=== PATIENT | female | born 1985 | race Caucasian/White ===

== ENCOUNTER → 2018-09-16 10:38 | Outpatient (CLI) | payer OTHER, SELFPAY ==
[2018-09-16 11:10] LABS: Add Manual Diff / Slide Review NO; Basophils Absolute Auto 100 /uL (0-100); Eosinophils Absolute Auto 100 /uL (0-450); Eosinophils Percent Auto 1.3 % (2-4); Hematocrit 37.1 % (36-46); Hemoglobin 11.9 g/dL (12.0-16.0); Lymphocytes Absolute Auto 1400 /uL (1100-4500); Lymphocytes Percent Auto 25.8 % (25-40); Mean Corpuscular HGB Conc 32.1 % (30-36); Mean Corpuscular Hemoglobin 22.5 PG (26-34); Monocytes Absolute Auto 400 /uL (0-900); Monocytes Percent Auto 8.4 % (3-14); Neutrophils Absolute Auto 3400 /uL (1500-7000); Neutrophils Percent Auto 63.5 % (50-75); Platelet Count 176 X10^3/uL (150-400); Red Cell Distribution Width 17.3 % (11.6-14.8); White Blood Cell Count 5.3 X10^3/uL (4.5-11.0)
[2018-09-16 11:54] LABS: Alanine Aminotransferase 21 IU/L (9-52); Albumin Globulin Ratio 1.5 (1.0-2.8); Alkaline Phosphatase 25 U/L (38-126); Aspartate Aminotransferase 10 IU/L (14-36); BUN Creatinine Ratio 24.3 (6-22); Bilirubin Total 0.9 mg/dL (0.2-1.3); Blood Urea Nitrogen 17 mg/dL (7-17); Carbon Dioxide 25 mmol/L (22-32); Chloride 105 mmol/L (98-107); Cholesterol 158 mg/dL (140-199); Estimated Glomerular Filt Rate > 60.0 mL/min (>60); Globulin 2.6 g/dL (1.7-4.1); Glucose 92 mg/dL (70-100); HDL Cholesterol 68 mg/dL (40-60); HEMOLYSIS < 15 (0-50); LDL Cholesterol Calculated 83 mg/dL (<100); Sodium 137 mmol/L (137-145); Total Protein 6.6 g/dL (6.3-8.2); Triglycerides 36 mg/dL (35-150)
[2018-09-16 12:23] LABS: Thyroid Stimulating Hormone 2.19 uIU/mL (0.47-4.68)
== END ==
DX: Z13.228 Encounter for screening for other metabolic disorders (principal); Z13.220 Encounter for screening for lipoid disorders; Z13.0 Encounter for screening for diseases of the blood and blood-forming organs and certain disorders involving the immune mechanism; Z13.29 Encounter for screening for other suspected endocrine disorder
CPT/HCPCS: 36415; 80053; 80061; 84443; 85025

== ENCOUNTER → 2018-09-29 15:01 | Outpatient (CLI) | payer OTHER, SELFPAY ==
[2018-09-29 15:17] LABS: Add Manual Diff / Slide Review NO; Basophils Absolute Auto 100 /uL (0-100); Basophils Percent Auto 1.3 % (0-2); Eosinophils Absolute Auto 0 /uL (0-450); Eosinophils Percent Auto 0.7 % (2-4); Hematocrit 36.4 % (36-46); Hemoglobin 11.8 g/dL (12.0-16.0); Lymphocytes Absolute Auto 1600 /uL (1100-4500); Lymphocytes Percent Auto 23.5 % (25-40); Mean Corpuscular HGB Conc 32.5 % (30-36); Mean Corpuscular Hemoglobin 22.4 PG (26-34); Mean Corpuscular Volume 69.1 fL (80-100); Monocytes Absolute Auto 300 /uL (0-900); Monocytes Percent Auto 4.8 % (3-14); Neutrophils Absolute Auto 4600 /uL (1500-7000); Neutrophils Percent Auto 69.7 % (50-75); Platelet Count 200 X10^3/uL (150-400); Red Blood Cell Count 5.28 X10^6/uL (4.0-5.2); Red Cell Distribution Width 17.4 % (11.6-14.8); White Blood Cell Count 6.6 X10^3/uL (4.5-11.0)
[2018-09-29 15:54] LABS: Anisocytosis 1+; Microcytosis 1+
[2018-09-29 16:32] LABS: Alanine Aminotransferase 33 IU/L (9-52); Albumin 4.3 g/dL (3.5-5.0); Albumin Globulin Ratio 1.6 (1.0-2.8); Alkaline Phosphatase 28 U/L (38-126); Aspartate Aminotransferase 14 IU/L (14-36); BUN Creatinine Ratio 17.8 (6-22); Bilirubin Total 0.5 mg/dL (0.2-1.3); Bilirubin Unconjugated 0.5 mg/dL (0.0-1.1); Blood Urea Nitrogen 16 mg/dL (7-17); Calcium 9.1 mg/dL (8.4-10.2); Carbon Dioxide 26 mmol/L (22-32); Chloride 103 mmol/L (98-107); Estimated Glomerular Filt Rate > 60.0 mL/min (>60); Globulin 2.7 g/dL (1.7-4.1); Glucose 102 mg/dL (70-100); HEMOLYSIS < 15 (0-50); Sodium 137 mmol/L (137-145)
== END ==
DX: D64.9 Anemia, unspecified (principal); R94.4 Abnormal results of kidney function studies; R94.5 Abnormal results of liver function studies
CPT/HCPCS: 36415; 80053; 80076; 85025

== ENCOUNTER → 2019-10-10 12:09 | Outpatient (CLI) | payer OTHER, SELFPAY ==
--- NOTE | 2019-10-10 | DI.US.S_ITS ---
PROCEDURE: US OB >= 14 WEEKS FETUS INDICATIONS: 20 WEEK ANATOMY SCAN OUTSIDE/PRIOR DATING DATA: First dating scan (date and location): Unknown Estimated date of delivery (ANNETTE) from first dating scan: 03/03/20 outside ultrasound. TECHNIQUE: Real-time scanning was performed of the fetus, with image documentation and biometric measurements. COMPARISON: None. FINDINGS: General: A single living intrauterine gestation is present. Presentation: Breech. Placenta: Placental position is posterior, without previa. Amniotic fluid index: 10.1 cm, normal range is 5-24 cm. heart rate: 147 beats per minute. Maternal cervical canal: 4.5 cm long. Normal lower limit is 2.5 cm. biometrics: Biparietal diameter: 19 weeks 2 days Head circumference: 19 weeks Abdominal circumference: 19 weeks 4 days Femur length: 19 weeks 6 days Estimated gestational age from initial scan: not applicable. Composite gestational age from present scan: 19 weeks 2 days Estimated weight and percentile: 19 weeks 3 days Measurement variability for biometric dating: +/- 7 days from 14 weeks to 15 weeks 6 days gestation, +/- 10 days from 16 weeks to 21 weeks 6 days gestation, +/- 2 weeks from 22 weeks to 27 weeks 6 days gestation, +/- 3 weeks for 28 weeks gestation or later. weight reference: 4500 g or EFW >90/95% is considered macrosomia or large for gestational age. EFW <10% is small for gestational age. EFW 5% or less is considered intra-uterine growth restriction. Anatomic survey: Neuro: Ventricles are non-dilated at less than 10 mm. Cisterna magna is normal at 3-11 mm. Cerebellum is normal in size and morphology. Nuchal skin fold: Normal at less than 6 mm between 14-21 weeks gestational age. Face: Nose and lips, facial profile are normal. Spine: No evidence for spina bifida. Heart: 4-chambered heart is present, with normal ventricular outflow tracts. Diaphragm: Diaphragm is intact. Stomach: Left-sided stomach is present. Kidneys: No hydronephrosis. Normal is less than 5 mm in 2nd trimester, less than 7 mm in 3rd trimester. Cord: 3-vessel cord has orthotopic insertion. Bladder: Normal in size. Extremities: All 4 extremities identified. IMPRESSION: 1. Single living IUP with mean composite gestational age of 19 weeks 3 days corresponding to normal interval growth with estimated weight 65th percentile. 2. Normal anatomic survey. Dictated by: Luan Rodriguez RR Interpreted: Yariel Hawkins MD on 10/11/2019 at 16:59 Approved by: Yariel Hawkins M.D. on 10/11/2019 at 17:32
== END ==
PROVIDERS: Referring Provider Nurse Practitioner Obstetrics & Gynecology; Visit Provider Nurse Practitioner Obstetrics & Gynecology
DX: Z36.89 Encounter for other specified antenatal screening (principal); Z3A.19 19 weeks gestation of pregnancy
CPT/HCPCS: 76801; 76811

== ENCOUNTER → 2019-11-17 08:27 | Outpatient (CLI) | payer OTHER, SELFPAY ==
[2019-11-17 09:55] LABS: Hematocrit 32.7 % (36-46); Hemoglobin 10.6 g/dL (12.0-16.0); Mean Corpuscular HGB Conc 32.4 % (30-36); Mean Corpuscular Hemoglobin 23.1 PG (26-34); Mean Corpuscular Volume 71.4 fL (80-100); Platelet Count 162 X10^3/uL (150-400); Red Blood Cell Count 4.57 X10^6/uL (4.0-5.2); White Blood Cell Count 8.6 X10^3/uL (4.5-11.0)
[2019-11-17 10:15] LABS: Glucose Fasting 91 mg/dL (70-100)
[2019-11-17 10:51] LABS: Glucose Tol Interpretation INTERPRETATION
[2019-11-17 11:50] LABS: Glucose 1 Hour 134 mg/dL (70-170)
[2019-11-17 13:08] LABS: Glucose 2 Hour 69 mg/dL (70-140)
== END ==
PROVIDERS: PCP Nurse Practitioner Obstetrics & Gynecology; Referring Provider Nurse Practitioner Obstetrics & Gynecology; Visit Provider Nurse Practitioner Obstetrics & Gynecology
DX: Z34.02 Encounter for supervision of normal first pregnancy, second trimester (principal); Z13.1 Encounter for screening for diabetes mellitus; Z67.91 Unspecified blood type, Rh negative
CPT/HCPCS: 36415; 82951; 82952; 85027; 86850

== ENCOUNTER → 2020-02-06 15:18 | Outpatient (ROUT) | payer OTHER, SELFPAY | PROVIDERS: PCP Nurse Practitioner Obstetrics & Gynecology; Visit Provider Nurse Practitioner Obstetrics & Gynecology | DX: Z34.90 Encounter for supervision of normal pregnancy, unspecified, unspecified trimester (principal); Z36.85 Encounter for antenatal screening for Streptococcus B; Z3A.36 36 weeks gestation of pregnancy | CPT/HCPCS: 87070; 87205 ==

== ENCOUNTER 2020-03-06 06:43 | Outpatient (CLI) | payer OTHER, SELFPAY ==
--- NOTE | 2020-03-06 06:56 | PM.OBTRLD ---
Visit Information Visit Information Date of evaluation: 03/06/20 Primary OB Provider: Morena Valentine On-call OB Provider: Jo Casarez Reason for Evaluation: Yes rupture of membranes Comments/Additional reasons for admission: 34YO @40wks3 days by sure LMP and 8wk US presents for evaluation of PROM which occurred last night, 03/05/20, at 1845. Declined to come in at that time. Had mild contractions overnight w/ good FM and continued to leak small amounts of clear fluid. Strongly desires low intervention and does not want to stay to be admitted this morning. Routine PN care w/ CNM complicated only by age and beta thalassemia minor. is present and supportive. Vital Signs Vital Signs: BP 127/73, HR-79bpm, T36.7C Temporal PFSH Medical History (Updated 03/06/20 @ 07:22 by Morena Valentine CNM) Chicken pox (Resolved) Surgical History Anesthesia (Resolved) History of lateral meniscus repair of left knee (Resolved) History of repair of ACL (Resolved ~2002) Family History Mother Breast cancer Grandmother Breast cancer Social History marital status: number of children: 0 household members: spouse lives independently: Yes occupational status: employed (Massage therapist) Smoking Status: Never smoker alcohol intake: current (rare) substance use type: does not use Review of Systems Review of Systems ROS: Yes All systems reviewed with the patient and are negative except as otherwise documented Exam Vital Signs (past 8 hours): see above Uterus Location (Fundal Height): 39 Presentation: vertex Amniotic Fluid: clear and other Other: CE deferred as patient does not appear to be uncomfortable and membranes are rupture x 12 hours. Evaluation Evaluation Baseline heart rate: 130 Variability: Moderate (11-25) monitor accelerations: Present monitor decelerations: Absent Contraction Frequency (minutes): 5 Uterine Contraction Intensity: Mild Category of Tracing: I Non-invasive Membranes Rupture Test: negative Diagnosis, Plan/Disposition Final Diagnosis (1) 40 weeks gestation of : Status: Acute (2) PROM (premature rupture of membranes): Status: Acute Problem details: Counseled on recommendation for admission and labor augmentation at this time. Patient declines, but agrees to this no later than 24 hours from ROM. Counseled on risk of infection w/ no CE performed to reduce risk. Encouraged her to come back [facility] if concern for decreased FM, change in color of leaking fluid or stronger contractions. Reviewed warning sx. Return no later than 5 this evening. (3) Beta thalassemia minor: Status: Acute (4) Advanced maternal age in in third trimester: Status: Acute
== END 2020-03-06 07:12 | disposition home or self-care (01) ==
LOC: LABOR 07:07 → OB 14:02
PROVIDERS: PCP Nurse Practitioner Obstetrics & Gynecology; Referring Provider Nurse Practitioner Obstetrics & Gynecology; Visit Provider Nurse Practitioner Obstetrics & Gynecology
DX: O42.92 Full-term premature rupture of membranes, unspecified as to length of time between rupture and onset of labor (principal); O09.523 Supervision of elderly multigravida, third trimester; O48.0 Post-term pregnancy; D56.3 Thalassemia minor; Z3A.40 40 weeks gestation of pregnancy
CPT/HCPCS: 59025; 84112; G0378; G0379

== ENCOUNTER 2020-03-06 14:47 | Inpatient (IN) | payer OTHER, SELFPAY ==
--- NOTE | 2020-03-06 14:51 | PM.OBHP.1 ---
OB HPI Date/Time Date of admission: 03/06/20 Date Patient Seen: 03/06/20 Time Patient Seen: 14:55 History of Present Condition Chief complaint: Obs : 2 Para: 0 Estimated Date of Delivery: 03/03/20 Estimated Gestational Age (weeks): 40.3 Narrative: Jania Palomo is a 34 year old female @ 40wks3 days by LMP and early US presents for augmentation of PROM. PROM occurred 03/05/20 @ 1845 and patient declined admission until now. ROM was confirmed this morning at 0645, clear fluid and RNST at that time w/ mild ctx Q5 minutes. No change in contractions since. Patient would like to try breast pumping for nipple stimulation until 24 hours of ROM at which time, she will agree to pitocin augment. Routine PN care w/ CNM w/ risk factors of AMA and beta thalassemia minor. Patient strongly desires low intervention and declines IV. present and supportive. History of Present care: good care Dating criteria: LMP confirmed by 1st trimester US Ultrasounds: normal mid trimester US Obstetrical complications: none Medical complications: none Preadmission Labs Blood type: A (-) negative -: Antibody screen: negative, GBS status: negative, HBsAG: negative, HIV: negative and RPR/VDLR: negative -: Chlamydia screen: not detected and Gonorrhea screen: not detected -: Rubella: immune HCT: 33.7 HCAB: reactive Cell-free DNA: Negative, female 3 hr GTT: 2 hr (91/134/69) Prior (ies) History: 04/24/08- TAB @ 5wks Evaluation Evaluation Baseline heart rate: 130 Variability: Moderate (11-25) monitor accelerations: Present monitor decelerations: Absent Contraction Frequency (minutes): 8 Uterine Contraction Intensity: Mild Category of Tracing: I Comments: CE deferred as PROM has been confirmed and patient is not feeling regular contractions/not in labor. [facility] Medical History Chicken pox (Resolved) Surgical History Anesthesia (Resolved) History of lateral meniscus repair of left knee (Resolved) History of repair of ACL (Resolved ~2002) Family History Mother Breast cancer Grandmother Breast cancer Social History marital status: number of children: 0 household members: spouse lives independently: Yes occupational status: employed (Massage therapist) Smoking Status: Never smoker alcohol intake: current (rare) substance use type: does not use Meds Home Medications and Allergies Home Medications Medication Instructions Recorded Confirmed Type PO DAILY 03/06/20 History Allergies Allergy/AdvReac Type Severity Reaction Status Date / Time No Known Allergies Allergy Uncoded 12/02/17 12:44 Review of Systems Review of Systems ROS: Yes All systems reviewed with the patient and are negative except as otherwise documented Exam Vital Signs (past 8 hours): BP 139/84, HR-88bpm, T36.1C Termporal Uterus Location (Fundal Height): 39 Presentation: vertex Amniotic Fluid: clear Assessment and Plan Assessment and Plan Assessment and Plan narrative: A: Term primipara AMA Beta thalassemia minor (Hct-33.7) No indication for GBS prophylaxis PROM x 20 hours without sx of infection P: Admit, routine orders w/ CBC and T&S. Breast pump for nipple stimulation (20min pumping/20min activity/20min rest) x3-4 cycles. Will start IV if pitocin is indicated @ 24 hours of PROM, per patient request. Labor support PRN. Reassess @ [id number]. aware of patient status and plan of care. Time Spent with Patient Total time spent with greater than 50% in coordination of care (as documented) at patient's floor/unit and/or counseling patient:: 15-24 minutes
[2020-03-06 16:45] LABS: COVID19 -Nasal RAPID Negative (Negative)
--- NOTE | 2020-03-06 18:18 | PM.OBPNLAB ---
Date/Time Date Patient Seen: 03/06/20 Time Patient Seen: 18:00 Pain Control Pain control: tolerating well Comments: Sitting up on ball, denies contractions. Has completed 3 rounds of pumping. Declines CE. Pelvic Exam Comments: Declined Contractions Contractions on admission: irregular Monitor mode: Palpation Contraction frequency (min): 6 Contraction duration (min): 1 Contraction pattern: Irregular Contraction intensity: Mild Status status: Category l Heart Rate Baseline: 130 Comments: FHR reassuring by IA, regular w/ no decreases. Assessment and Plan Assessment: other (PROM) Plan: begin patient augmentation Comments: Recommend pitocin augmentation of labor for PROM. Patient consents to start pitocin augmentation after she pumps for 20 minutes 1 more time. Labor support PRN. Reassess in 4 hours or sooner, PRN.
[2020-03-06] MEDS: LACTATED RINGERS 1,000 ML 125 ML IV (19:27)
[2020-03-06] MEDS: OXYTOCIN PREMIX 30 UNIT/500 ML PLAST..BAG IV (19:28)
[2020-03-06 19:45] LABS: Add Manual Diff / Slide Review NO; Basophils Absolute Auto 100 /uL (0-100); Basophils Percent Auto 0.6 % (0-2); Eosinophils Absolute Auto 100 /uL (0-450); Eosinophils Percent Auto 0.9 % (2-4); Hematocrit 34.9 % (36-46); Hemoglobin 11.2 g/dL (12.0-16.0); Lymphocytes Absolute Auto 1600 /uL (1100-4500); Lymphocytes Percent Auto 12.7 % (25-40); Mean Corpuscular HGB Conc 32.1 % (30-36); Mean Corpuscular Hemoglobin 22.4 PG (26-34); Mean Corpuscular Volume 69.7 fL (80-100); Monocytes Absolute Auto 1000 /uL (0-900); Monocytes Percent Auto 8.5 % (3-14); Neutrophils Absolute Auto 9500 /uL (1500-7000); Neutrophils Percent Auto 77.3 % (50-75); Platelet Count 149 X10^3/uL (150-400); Red Blood Cell Count 5.01 X10^6/uL (4.0-5.2); White Blood Cell Count 12.3 X10^3/uL (4.5-11.0)
[2020-03-06 20:05] LABS: Hypochromasia 1+; Microcytosis 2+
--- NOTE | 2020-03-06 23:04 | PM.OBPNLAB ---
Date/Time Date Patient Seen: 03/06/20 Time Patient Seen: 23:00 Pain Control Pain control: tolerating well Comments: Coping well, stoic. Pain @ 7/10 with last few contractions, not yet breathing through them consistently. VS: BP 123/79, [id number], T36.9C Temporal Pelvic Exam Comments: Deferred until after 2 hours of strong contractions Contractions Contractions on admission: irregular Monitor mode: External Pitocin rate (mU/min): 10 Contraction frequency (min): 2 Contraction duration (min): 1 Contraction pattern: Regular Contraction intensity: Moderate Status status: Category l Heart Rate Baseline: 120 Monitor Accelerations: Present Monitor Decelerations: Absent Monitor Variability: Moderate Assessment and Plan Assessment: other (PROM, not yet in labor) Plan: continuous present management Comments: Continue pitocin titration to adequate contraction pattern. Plan CE in 2 hours. Labor support PRN. [place] aware of patient status, plan of care and FHR.
--- NOTE | 2020-03-07 02:43 | PM.OBPNLAB ---
Date/Time Date Patient Seen: 03/07/20 Time Patient Seen: 01:20 Pain Control Pain control: tolerating well Comments: VS: BP 122/77, [id number], T37.8C Temporal Pelvic Exam Dilation (cm): 3 Effacement (%): 85 station: -2 Amniotic membrane status: Leaking Comments: thin meconium Contractions Date/Time contractions began: Strong contractions began around 2300 Contractions on admission: irregular Monitor mode: External Pitocin rate (mU/min): 9 Contraction frequency (min): 2 Contraction duration (min): 1 Contraction pattern: Regular Contraction intensity: Moderate Status status: Category ll Heart Rate Baseline: 145 Monitor Accelerations: Present Monitor Decelerations: Early Monitor Variability: Moderate Comments: rare early and late decelerations Assessment and Plan Assessment: active labor Plan: continuous present management Comments: Continuous labor support. Reassess in 4 hours or sooner, PRN.
[2020-03-07] MEDS: LACTATED RINGERS 1,000 ML 125 ML IV (03:20)
--- NOTE | 2020-03-07 05:39 | PM.OBPNLAB ---
Date/Time Date Patient Seen: 03/07/20 Time Patient Seen: 05:20 Pelvic Exam Dilation (cm): 4 Effacement (%): 85 station: -2 Amniotic membrane status: Leaking Comments: position LOT, anterior asynclitic w/ overriding sutures Contractions Date/Time contractions began: 03/06/20@2300 Contractions on admission: irregular Monitor mode: External Pitocin rate (mU/min): 5 Contraction frequency (min): 3 Contraction duration (min): 1 Contraction pattern: Regular Contraction intensity: Moderate Status status: Category ll Heart Rate Baseline: 155 Monitor Accelerations: Present Monitor Decelerations: Variable Monitor Variability: Moderate Assessment and Plan Assessment: active labor Plan: continuous present management Comments: Counseled patient on position and recommendation for asymmetric hip positions and miles circuit. Pt request NO2 at this time. Will initiate NO2 for pain relief and continue pitocin titration to adequate contraction pattern. Reassess in 2-4 hours or sooner, PRN.
--- NOTE | 2020-03-07 12:26 | PM.OBPRVD ---
Events: Labor Augmentation, Prolonged Rupture of Membrane and Meconium Stained Fluid Labor & Delivery Delivery date: 03/07/20 Cervical ripening method: none Induction method: none Delivery augmentation: pitocin Delivery monitor: external FHT and external uterine Route of delivery: L&D Laceration Description: Perineal - 1st Degree Delivery repair: chromic (3.0) Estimated blood loss (mL): 50 Anesthesia type: Other (Nitrous Oxide) [place] Baby 1: Infant gender: Female Presentation: vertex Placenta delivery description: Spontaneous cord vessel description: 3 Vessels (Loose nuchal cord x2) score (1 min): 8 score (5 min): 9 Narrative: Patient labored well with nitrous oxide. Spontaneous urge to push with presumption of complete at 0900 led to slow, but steady descent of vertex. Patient stopped using nitrous for second stage. NSVB of a vigorous baby girl in TONO position with a double loose nuchal cord reduced on the perineum. Easy delivery of the shoulders. was placed on maternal abdomen for drying and skin to skin. Remaining 30 units of pitocin in 500mL LR was increased to 300mL/hr for AMTSL. After cessation of pulsation, the cord was double clamped and cut. Cord blood sample was collected. Gentle cord tractions led to spontaneous, Schultze delivery of an apparently intact placenta, membranes and 3VC. Fundus immediately form and bleeding minimal. Inspection revealed a 1st degree perineal laceration, repaired w/ 3.0 Chromic under adequate 1% lidocaine local in the usual fashion. QBL 50mL. Both mother and baby stable and skin to skin as I left the room. Plan for aftercare: Routine PP orders. Anticipate d/c to home in 24 hours.
[2020-03-07] MEDS: KETOROLAC 30 MG/ML VIAL IV (13:49)
[2020-03-07] MEDS: DERMOPLAST SPRAY 20% 60 ML 1 SPRAY TOP (19:59)
[2020-03-07] MEDS: IBUPROFEN 600 MG TABLET PO (20:01)
[2020-03-08] MEDS: LANOLIN OINT 7 GM 1 APPLIC TOP (04:02)
[2020-03-08] MEDS: IBUPROFEN 600 MG TABLET PO ×2 (04:02→10:17)
--- NOTE | 2020-03-08 08:53 | P.DS_ITS ---
Discharge Providers Provider Date of admission: 03/06/20 14:47 Discharge Date: 03/08/20 Primary care physician: Morena Valentine CNM Consults: 03/08/20 12:23 Consult to Label Tacker Routine Comment: Discharge provider: Morena Valentine CNM Summary Hospital Course Date Patient Seen: 03/08/20 Time Patient Seen: 08:40 Hospital Course: Routine care course. Voiding and ambulating independently. independently w/ /a nipple shield. Pain well controlled w/ PO medication. Lochia light, no clots. Feels ready for discharge to home today. Peripartum Data Infant Delivery Method: Natural Vaginal Laceration description: Perineal - 1st Degree complications: none 1: Gender: Female Disposition of : home Discharge Diagnosis (1) First degree perineal laceration during delivery: Status: Acute Status at Discharge Cognitive/behavioral status at discharge: oriented Functional status at discharge: independent ambulation Overall status at discharge: patient is progressing back to baseline Time Spent with Patient Time attestation: Total time spent providing and/or coordinating discharge services: Time spent: Less than 30 minutes Objective Labs Result Diagrams: 03/06/20 19:15 Exam Vital Signs (past 8 hours): BP 98/64, RR16/min, [id number], T99.4F Temporal Other: Fundus firm at U-1, lochia light, perineum well approximated Discharge Plan Discharge Plan Patient Disposition: Home Discharge orders & Medications Prescriptions: New docusate sodium [DOK] 100 mg Capsule 100 mg PO DAILY 14 Days Qty: 14 RF: 0 acetaminophen 325 mg Tablet 650 mg PO Q6HR PRN (Reason: Pain, Mild (1-3)) 14 Days Qty: 60 RF: 3 ibuprofen 600 mg Tablet 600 mg PO Q6HR PRN (Reason: Pain, Mild (1-3)) 14 Days Qty: 60 RF: 2 Continued 1 tab tablet 1 tab PO DAILY RF: 0 Follow up/Referrals: Morena Valentine CNM [Primary Care Provider] - (Follow-up by [facility] 03/21/20 @ 1pm, as scheduled Schedule 6wk follow-up appointment at your convenience online) Diet/Activity/Treatments Diet: Regular Activity: pelvic rest x 6 weeks Skin/Wound/Dressing Care Report to your healthcare provider any signs of infection, such as:: chills, fever, increased pain and unusual drainage Visit Report/Discharge Packet Instructions: DI for Depression Discharge Data Primary Care Provider: Morena Valentine
[2020-03-08] MEDS: RHO(D) IMMUNE GLOBULIN 1,500 UNIT SYRINGE 1500 UNIT IM (10:16)
[2020-03-08] MEDS: DOCUSATE 100 MG CAPSULE PO (10:17)
[2020-03-08] MEDS: PRENATAL VIT,CALC/IRON/FOLIC 1 TABLET 1 TAB PO (10:17)
[2020-03-08 10:31] VITALS: BP 98/64; PULSE 78; RESP 16; TEMP 37.4
== END 2020-03-08 14:23 | disposition home or self-care (01) | DRG 807 ==
PROVIDERS: Admitting Provider Nurse Practitioner Obstetrics & Gynecology; PCP Nurse Practitioner Obstetrics & Gynecology; Referring Provider Nurse Practitioner Obstetrics & Gynecology; Visit Provider Nurse Practitioner Obstetrics & Gynecology
DX: O42.12 Full-term premature rupture of membranes, onset of labor more than 24 hours following rupture (principal); Z37.0 Single live birth; Z3A.40 40 weeks gestation of pregnancy; O69.81X0 Labor and delivery complicated by cord around neck, without compression, not applicable or unspecified; O70.0 First degree perineal laceration during delivery; O77.0 Labor and delivery complicated by meconium in amniotic fluid; D56.3 Thalassemia minor; Z11.59 Encounter for screening for other viral diseases; O48.0 Post-term pregnancy
CPT/HCPCS: 36415; 59025; 59050; 84112; 85025; 85461; 86850; 86900; 86901; 87635; G0379; J1885; J2590; J2790